=== PATIENT | male | born 1975 | race African-American/Black ===

== ENCOUNTER 2023-12-19 10:32 | Emergency (ER) | payer MEDICAID, OTHER ==
[~2023-12-19] VITALS: Ht 172.7 cm; Wt 78.0 kg
[2023-12-19 10:35] VITALS: O2SAT 100
[2023-12-19 11:04] LABS: BASOPHILS % 0.9 % (0.0-2.0); EOSINOPHILS % 10.4 % (0.0-5.0); HEMATOCRIT. 42.1 % (42.0-52.0); HEMOGLOBIN. 13.6 g/dL (14.0-18.0); LYMPHOCYTES % 35.2 % (20.0-50.0); MEAN CORPUSCULAR HEMOGLOBIN 27.3 pg (28.0-32.0); MEAN CORPUSCULAR HGB CONC 32.4 g/dL (31.0-37.0); MEAN CORPUSCULAR VOLUME 84.3 fL (80.0-94.0); NEUTROPHILS % 47.5 % (40.0-76.0); PLATELET 266 x1000/uL (130-400); RED CELL DISTRIBUTION WIDTH 14.1 % (11.6-14.6)
[2023-12-19 11:13] LABS: CHLORIDE 109 mEq/L (98-107); POTASSIUM 4.3 mEq/L (3.5-5.1); SODIUM 141 mEq/L (136-145)
[2023-12-19 11:14] LABS: CARBON DIOXIDE 26 mEq/L (21-32)
[2023-12-19 11:15] LABS: CALCIUM 9.3 mg/dL (8.7-10.4)
[2023-12-19 11:19] LABS: CREATININE 1.1 mg/dL (0.6-1.3); GLUCOSE 93 mg/dL (70-105)
[2023-12-19 11:20] LABS: UREA NITROGEN BLOOD 15 mg/dL (9-23)
[2023-12-19 11:24] LABS: TROPONIN I HIGH SENSITIVITY < 4 ng/L (3.0-53)
[2023-12-19] MEDS: PREDNISONE 20MG TABLET PO STA (13:18)
[2023-12-19 13:53] VITALS: PULSE 88; RESP 22
[2023-12-19] MEDS: ALBUTEROL (0.083%) 2.5MG/3ML NEB HHN STA (13:53)
[2023-12-19] MEDS: IPRATROPIUM BROMIDE (0.02%) 0.5MG/2.5ML NEB HHN STA (13:53)
[2023-12-19] MEDS ORDERED: P50 MT (14:51)
[2023-12-19] MEDS ORDERED: ALBU6.7H15 INH (14:51)
[2023-12-19 15:00] VITALS: BP 144/88; PULSE 79; RESP 16; TEMP 98.2
== END 2023-12-19 18:41 | disposition home or self-care (01) ==
LOC: ER 10:32
DX: J45.901 Unspecified asthma with (acute) exacerbation (principal); F32.9 Major depressive disorder, single episode, unspecified
CPT/HCPCS: 80048; 85025; 84484; 36415; 71045; 94640; 93005; 99285; J7512; Z7610 ×5

== ENCOUNTER 2024-01-20 10:32 | Emergency (ER) | payer OTHER ==
[~2024-01-20] VITALS: Ht 172.7 cm; Wt 78.2 kg
[~2024-01-20 10:32] MED LIST: ALBU6.7H15 INH; P50 MT
[2024-01-20 10:44] VITALS: O2SAT 97
[2024-01-20] MEDS: PREDNISONE 20MG TABLET PO ONE (12:09)
[2024-01-20 12:27] VITALS: PULSE 67; RESP 22
[2024-01-20] MEDS: IPRATROPIUM/ALBUTEROL 0.5-3(2.5)MG/3ML NEB HHN ONE (12:27)
[2024-01-20] MEDS ORDERED: FLUT1DIS2 INH (13:23)
[2024-01-20] MEDS ORDERED: P20 MT (13:23)
[2024-01-20] MEDS ORDERED: ALBU90AE INH (13:23)
[2024-01-20 13:33] VITALS: BP 136/69; PULSE 70; RESP 20; TEMP 98.2
== END 2024-01-20 13:54 | disposition home or self-care (01) ==
LOC: ER 10:32
DX: J45.901 Unspecified asthma with (acute) exacerbation (principal)
CPT/HCPCS: 71045; 94640; 93005; 99283; J7512; Z7610 ×3